=== PATIENT | male | born 1985 | race Caucasian/White ===

== ENCOUNTER → 2018-10-21 | Outpatient (CLI) | payer OTHER ==
[~2018-10-21] MED LIST: ANAPROX DS550 MG PO; CARAFATE1 G1 PO; CARVEDILOL3.125 MG PO; CELEXA10 MG PO; KEFLEX500 MG PO; LISINOPRIL2.5 MG PO; LOMOTIL 0.025 M1 TA1 PO; MOTRIN800 MG PO; MULTI-VITAMIN1 EACH PO; NKHM PO; NORFLEX100 MG PO; NORTRIPTYLINE10 MG PO; ULTRAM50 MG PO; VICODIN 5/500 505 MG PO; XYZAL5 M1 PO; ZANTAC 150150 MG PO; ZOFRAN ODT4 MG SL; ZYRTEC10 M3 PO
== END | disposition home or self-care (01) ==
LOC: US 14:27
DX: M79.604 Pain in right leg (principal); R60.0 Localized edema

== ENCOUNTER 2020-10-31 01:25 | Emergency (ER) | payer BC ==
[~2020-10-31] VITALS: Ht 177.8 cm; Wt 136.1 kg
[2020-10-31] MEDS ORDERED: RA FISH OIL 1,1 EACH PO (01:32)
[2020-10-31 01:57] LABS: BASO # 0.1 10*3/uL (0.0-0.1); BASO % 0.6 % (0.0-1.0); EOS # 0.1 10*3/uL (0.0-0.4); EOS % 1.7 % (1.0-4.0); HEMATOCRIT 44.3 % (42.0-52.0); LYMPH # 2.1 10*3/uL (1.3-4.4); LYMPH % 27.7 % (27.0-41.0); MEAN CELL VOLUME 91.5 fl (80.0-94.0); MEAN CORPUSCULAR HGB CONC 32.7 g/dl (33.0-37.0); MEAN PLATELET VOLUME 10.1 fl (9.6-12.3); MONO # 0.6 10*3/uL (0.1-1.0); MONO % 8.2 % (3.0-9.0); NEUT # 4.8 10*3/uL (2.3-7.9); NEUT % 61.5 % (47.0-73.0); PLATELET COUNT AUTOMATED 248 10*3/uL (130-400); RED BLOOD COUNT 4.84 10*6/uL (4.50-5.90); RED CELL DISTRI WIDTH 12.1 % (0-14.5); WHITE BLOOD COUNT 7.7 10*3/uL (4.8-10.8)
== END 2020-10-31 02:43 | disposition home or self-care (01) ==
LOC: ED 01:25
PROVIDERS: Internal Medicine
DX: R21 Rash and other nonspecific skin eruption (principal); Z79.899 Other long term (current) drug therapy; Z90.89 Acquired absence of other organs

== ENCOUNTER 2021-03-16 11:58 | Emergency (ER) | payer BC ==
[~2021-03-16] VITALS: Ht 175.2 cm; Wt 136.1 kg
[~2021-03-16 11:58] MED LIST changes: +RA FISH OIL 1,1 EACH PO
[2021-03-16 13:05] LABS: BASO % 0.3 % (0.0-1.0); EOS % 0.1 % (1.0-4.0); HEMATOCRIT 43.2 % (42.0-52.0); LYMPH # 1.1 10*3/uL (1.3-4.4); LYMPH % 16.3 % (27.0-41.0); MEAN CELL VOLUME 94.1 fl (80.0-94.0); MEAN CORPUSCULAR HGB 29.6 pg (27.0-31.0); MEAN CORPUSCULAR HGB CONC 31.5 g/dl (33.0-37.0); MEAN PLATELET VOLUME 10.7 fl (9.6-12.3); MONO # 0.9 10*3/uL (0.1-1.0); MONO % 13.3 % (3.0-9.0); NEUT # 4.7 10*3/uL (2.3-7.9); NEUT % 69.7 % (47.0-73.0); PLATELET COUNT AUTOMATED 187 10*3/uL (130-400); RED BLOOD COUNT 4.59 10*6/uL (4.50-5.90); RED CELL DISTRI WIDTH 12.1 % (0-14.5); WHITE BLOOD COUNT 6.8 10*3/uL (4.8-10.8)
[2021-03-16 13:37] LABS: ALBUMIN 3.6 gm/dl (3.1-4.5); BUN 12 mg/dl (7-24); CHLORIDE 110 mmol/L (98-107); CREATININE 1.13 mg/dL (0.70-1.30); POTASSIUM 4.2 mmol/L (3.5-5.1); SGOT/AST 17 IU/L (3-35); SGPT/ALT 25 U/L (12-78); SODIUM 141 mmol/L (136-145); TOTAL PROTEIN 7.5 gm/dL (6.4-8.2)
[2021-03-16 13:39] LABS: ALKALINE PHOSPHATASE 60 U/L (45-117)
[2021-03-16 13:40] LABS: TROPONIN I < 0.015 ng/ml (<0.045)
== END 2021-03-16 16:07 | disposition home or self-care (01) ==
LOC: ED 11:58
PROVIDERS: Physician Assistant
DX: R55 Syncope and collapse (principal); Z20.822 Contact with and (suspected) exposure to COVID-19; Z79.899 Other long term (current) drug therapy

== ENCOUNTER 2022-04-07 12:01 | Emergency (ER) | payer BC ==
[~2022-04-07] VITALS: Ht 177.8 cm; Wt 136.1 kg
[2022-04-07] MEDS ORDERED: LISINOPRIL20 MG PO (12:11)
[2022-04-07] MEDS ORDERED: LEXAPRO10 MG PO (12:12)
[2022-04-07] MEDS ORDERED: COREG12.5 M1 PO (12:12)
[2022-04-07 12:19] LABS: BASO # 0.1 10*3/uL (0.0-0.1); BASO % 1.1 % (0.0-1.0); EOS # 0.3 10*3/uL (0.0-0.4); EOS % 4.3 % (1.0-4.0); HEMATOCRIT 43.1 % (42.0-52.0); LYMPH # 1.2 10*3/uL (1.3-4.4); LYMPH % 18.4 % (27.0-41.0); MEAN CELL VOLUME 91.1 fl (80.0-94.0); MEAN CORPUSCULAR HGB 30.2 pg (27.0-31.0); MEAN CORPUSCULAR HGB CONC 33.2 g/dl (33.0-37.0); MONO # 0.4 10*3/uL (0.1-1.0); MONO % 5.8 % (3.0-9.0); NEUT # 4.6 10*3/uL (2.3-7.9); NEUT % 70.1 % (47.0-73.0); PLATELET COUNT AUTOMATED 230 10*3/uL (130-400); RED BLOOD COUNT 4.73 10*6/uL (4.50-5.90); WHITE BLOOD COUNT 6.5 10*3/uL (4.8-10.8)
[2022-04-07 12:31] LABS: ACT PARTIAL THROMBO TIME 24.2 SECONDS (20.0-32.1)
[2022-04-07 12:39] LABS: ALKALINE PHOSPHATASE 65 U/L (45-117); BUN 15 mg/dl (7-24); CHLORIDE 113 mmol/L (98-107); CREATININE 1.01 mg/dL (0.70-1.30); POTASSIUM 3.3 mmol/L (3.5-5.1); SGOT/AST 16 IU/L (3-35); SGPT/ALT 33 U/L (12-78); SODIUM 143 mmol/L (136-145); TOTAL PROTEIN 7.4 gm/dL (6.4-8.2)
== END 2022-04-07 14:00 | disposition home or self-care (01) ==
LOC: ED 12:01
PROVIDERS: Internal Medicine
DX: R55 Syncope and collapse (principal); R42 Dizziness and giddiness; R11.0 Nausea; Z79.899 Other long term (current) drug therapy; Z90.89 Acquired absence of other organs

== ENCOUNTER → 2022-05-03 | Outpatient (CLI) | payer BC ==
[~2022-05-03] MED LIST changes: +COREG12.5 M1 PO; +LEXAPRO10 MG PO; +LISINOPRIL20 MG PO
== END | disposition home or self-care (01) ==
LOC: CT 04-30 10:00
PROVIDERS: ATTEND Nurse Practitioner
DX: R51.9 Headache, unspecified (principal)

== ENCOUNTER 2023-07-01 23:47 | Emergency (ER) | payer OTHER ==
[~2023-07-01] VITALS: Ht 177.8 cm; Wt 133.8 kg
[2023-07-02] MEDS ORDERED: CEPHALEXIN500 M1 PO (00:38)
== END 2023-07-02 00:42 | disposition home or self-care (01) ==
LOC: ED 23:47
DX: S01.81XA Laceration without foreign body of other part of head, initial encounter (principal); F32.A Depression, unspecified; J45.909 Unspecified asthma, uncomplicated; I10 Essential (primary) hypertension; F41.9 Anxiety disorder, unspecified; Z91.013 Allergy to seafood; Z90.89 Acquired absence of other organs; W22.8XXA Striking against or struck by other objects, initial encounter; Y93.89 Activity, other specified; Y92.098 Other place in other non-institutional residence as the place of occurrence of the external cause; Y99.8 Other external cause status

== ENCOUNTER 2024-12-18 20:06 | Emergency (ER) | payer OTHER ==
[~2024-12-18] VITALS: Ht 177.8 cm; Wt 133.8 kg
[~2024-12-18 20:06] MED LIST changes: +CEPHALEXIN500 M1 PO
[2024-12-18] MEDS ORDERED: PREDNISONE50 MG PO (20:55)
[2024-12-18] MEDS ORDERED: CLOBETASOL PROPIONATE 30 GM TUBE T ONE (20:55)
[2024-12-18] MEDS ORDERED: Metoclopramide Hydrochloride 10 MG/2 ML VIAL IV ONE (21:00)
[2024-12-18] MEDS ORDERED: diphenhydrAMINE hydrochloride 50 MG/ML VIAL IV ONE (21:00)
[2024-12-18] MEDS ORDERED: CLOBETASOL PROPIONATE 30 GM TUBE T SCH (22:00)
== END 2024-12-18 21:16 | disposition home or self-care (01) ==
LOC: ED 20:06
DX: L23.7 Allergic contact dermatitis due to plants, except food (principal); Z91.013 Allergy to seafood; Z79.899 Other long term (current) drug therapy; Z90.89 Acquired absence of other organs